=== PATIENT | male | born 1955 | race Hispanic/Latino ===

== ENCOUNTER → 2017-08-21 | Outpatient (CLI) | payer OTHER | END | disposition home or self-care (01) | LOC: RAH 10:59 | PROVIDERS: ATTEND Internal Medicine | DX: K44.9 Diaphragmatic hernia without obstruction or gangrene (principal); I70.0 Atherosclerosis of aorta; M47.895 Other spondylosis, thoracolumbar region | CPT/HCPCS: 71250 ==

== ENCOUNTER → 2018-03-04 | Outpatient (CLI) | payer OTHER | END | disposition home or self-care (01) | LOC: OIH 08:09 | PROVIDERS: ATTEND Internal Medicine | DX: I10 Essential (primary) hypertension (principal); M47.815 Spondylosis without myelopathy or radiculopathy, thoracolumbar region | CPT/HCPCS: 71046 ==

== ENCOUNTER → 2019-03-04 | Outpatient (CLI) | payer OTHER | END | disposition home or self-care (01) | LOC: OIH 09:49 | PROVIDERS: ATTEND Internal Medicine | DX: I70.0 Atherosclerosis of aorta (principal); I10 Essential (primary) hypertension | CPT/HCPCS: 71045 ==

== ENCOUNTER 2022-01-18 14:48 | Emergency (ER) | payer OTHER ==
[~2022-01-18] VITALS: Ht 172.7 cm; Wt 95.3 kg
[2022-01-18 15:13] LABS: APPEARANCE,URINE CLEAR (CLEAR); BILIRUBIN,URINE NEGATIVE (NEGATIVE); COLOR,URINE LIGHT-YELLOW (YELLOW); GLUCOSE, URINE (UA) >=1000 mg/dL (NEGATIVE); KETONES,URINE NEGATIVE (NEGATIVE); LEUKOCYTE ESTERASE ,URINE NEGATIVE Leu/uL (NEGATIVE); NITRATE,URINE NEGATIVE (NEGATIVE); OCCULT BLOOD,URINE MODERATE (NEGATIVE); PROTEIN,URINE NEGATIVE (NEGATIVE); UROBILINOGEN,URINE 0.2 mg/dL (0.2-1.0)
[2022-01-18 15:17] LABS: MUCUS,URINE RARE LPF (None Seen); SQUAMOUS EPITHELIAL CELL,UR RARE /HPF (0-2); WBC,URINE 0-1 /HPF (0-1)
[2022-01-18] MEDS ORDERED: ONDANSETRON 4MG INJ IVP ONE (16:00)
[2022-01-18] MEDS ORDERED: 0.9%NACL 1000ML 1,000 ML IV SCH (16:00)
[2022-01-18] MEDS ORDERED: KETOROLAC 30MG VIAL (30MG/ML) IVP ONE (16:00)
[2022-01-18 16:01] LABS: EOSINOPHILS % (AUTO) 2.1 % (0.0-8.0); HEMATOCRIT 46.4 % (42-54); LYMPHOCYTES % (AUTO) 36.1 % (21.0-51.0); MEAN CORPUSCULAR HEMOGLOBIN 31.2 pg (27.0-33.0); MEAN CORPUSCULAR HGB CONC 34.9 g/dL (32.0-36.0); MEAN CORPUSCULAR VOLUME 89.2 fL (79-99); MONOCYTES % (AUTO) 7.8 % (3.0-13.0); NEUTROPHILS % (AUTO) 52.7 % (40.0-77.0); PLATELET COUNT (AUTO) 184 K/uL (130-400); RED CELL DISTRIBUTION WIDTH 12.3 % (11.0-15.5); WHITE BLOOD COUNT (AUTO) 5.8 K/uL (4.8-10.8)
[2022-01-18 16:20] LABS: CREATININE 0.9 mg/dL (0.5-1.5); POTASSIUM 4.5 mmol/L (3.5-5.1)
[2022-01-18 16:27] VITALS: BP 143/103
[2022-01-18 16:33] LABS: ALBUMIN 4.1 g/dL (3.5-5.0); TOTAL PROTEIN, SERUM 7.5 g/dL (6.0-8.3)
[2022-01-18] MEDS ORDERED: KETO10 PO (17:17)
[2022-01-18] MEDS ORDERED: CEFU500T67 PO (17:17)
[2022-01-18] MEDS ORDERED: MORPHINE 2 MG SYG IVP ONE (17:30)
[2022-01-18] MEDS ORDERED: CEFTRIAXONE 1G VIAL IVP ONE (17:30)
== END 2022-01-18 18:01 | disposition home or self-care (01) ==
LOC: EDH 14:48
DX: N30.91 Cystitis, unspecified with hematuria (principal); K57.30 Diverticulosis of large intestine without perforation or abscess without bleeding; K42.9 Umbilical hernia without obstruction or gangrene; E11.9 Type 2 diabetes mellitus without complications; E78.00 Pure hypercholesterolemia, unspecified; I10 Essential (primary) hypertension; Z90.49 Acquired absence of other specified parts of digestive tract; Z79.899 Other long term (current) drug therapy; Z98.890 Other specified postprocedural states
CPT/HCPCS: 99284; 74176; 96374; 96375; 96361; 84484; 80053; 85025; 81001; 36415; J7030; J0696; J2405; J1885

== ENCOUNTER → 2023-02-03 | Outpatient (CLI) | payer OTHER ==
[~2023-02-03] MED LIST: CEFU500T67 PO; KETO10 PO
== END | disposition home or self-care (01) ==
LOC: OIH 12:09
PROVIDERS: ATTEND Internal Medicine
DX: M54.14 Radiculopathy, thoracic region (principal); R10.13 Epigastric pain; R10.9 Unspecified abdominal pain
CPT/HCPCS: 72070

== ENCOUNTER → 2023-09-30 | Outpatient (CLI) | payer OTHER ==
[~2023-09-30] MED LIST changes: +GADOTERATE MEGLUMINE 10 MMOL/20 ML VIAL IV ONE
== END | disposition home or self-care (01) ==
LOC: RAH 11:18
PROVIDERS: ATTEND Physical Medicine & Rehabilitation
DX: M47.817 Spondylosis without myelopathy or radiculopathy, lumbosacral region (principal); M48.07 Spinal stenosis, lumbosacral region; M51.26 Other intervertebral disc displacement, lumbar region; G45.9 Transient cerebral ischemic attack, unspecified; Z98.890 Other specified postprocedural states
CPT/HCPCS: 70553; 72148; A9575

== ENCOUNTER → 2025-02-02 | Outpatient (CLI) | payer OTHER ==
[~2025-02-02] MED LIST changes: -CEFU500T67 PO; -KETO10 PO
--- NOTE | 2025-02-03 17:20 | HMCIMG ---
NAME OF THE EXAM: MRI LUMBAR SPINE WITH AND WITHOUT CONTRAST CLINICAL INFORMATION: Lumbar radiculopathy. TECHNIQUE: Multiplanar, multisequence MRI of the lumbar spine was performed before and after intravenous contrast administration. For purposes of numbering, the most inferior normal diameter disc space is designated L5S1. Plain radiographs would be required to confirm this numbering prior to any spine intervention. CONTRAST: Intravenous gadolinium-based contrast (Clariscan, 19 mL) administered. COMPARISON: None provided. FINDINGS: ALIGNMENT: Mild straightening of the normal lumbar lordosis. No spondylolisthesis is identified. VERTEBRAL BODIES: Vertebral body heights are preserved without compression deformity. Postoperative changes of L4 and L5 laminectomy are present with associated paraspinal postoperative changes. Bilateral transpedicular screw fixation is present at L4, L5, and S1 with susceptibility artifact from hardware but no definite hardware complication. Multilevel endplate osteophytic spurring is noted. BONE MARROW SIGNAL: No marrow reconversion is seen. No focal marrow-replacing lesion is identified. DISC SPACES: Diffuse disc desiccation is present throughout the lumbar spine with severe loss of disc height at L4L5 and L5S1, compatible with advanced degenerative disc disease at these levels. SPINAL CANAL AND CORD: Conus medullaris terminates at the L1 level with normal signal and morphology. No epidural collection is seen. Central canal caliber is overall preserved at L1L2, with progressive narrowing inferiorly: no canal stenosis at L1L2, severe central canal stenosis at L2L3, [id number]-[id number] canal stenosis at L3L4, no significant canal stenosis at L4L5, and moderate canal stenosis at L5S1. No abnormal intradural or leptomeningeal enhancement is identified following contrast administration. LEVEL BY LEVEL: L1L2: Moderate disc bulge effaces the ventral thecal sac. Facet and ligamentum flavum hypertrophy are present. No central canal stenosis is identified. There is moderate bilateral neural foraminal stenosis. L2L3: Mild diffuse disc bulge effaces the ventral thecal sac with facet and ligamentum flavum hypertrophy. There is severe bilateral neural foraminal stenosis and severe central canal stenosis with impingement of the bilateral exiting nerve roots. L3L4: Diffuse broad-based disc bulge effaces the ventral thecal sac with facet arthropathy and ligamentum flavum hypertrophy. There is severe bilateral neural foraminal stenosis and [id number] central canal stenosis with impingement of the bilateral exiting nerve roots and crowding of the traversing nerve roots. L4L5: Severe reduction in disc height with diffuse chronic disc bulge, postoperative discectomy changes, and a large right paramedian fusion discosteophyte complex effacing the ventral thecal sac. Severe bilateral neural foraminal stenosis is present with impingement of the bilateral exiting nerve roots. No significant central canal stenosis is identified at this level. L5S1: Severe disc height loss with asymmetric chronic spondylosis, postoperative discectomy changes, facet joint arthropathy, and discosteophyte complex resulting in severe bilateral neural foraminal stenosis, more pronounced on the left, with impingement of the bilateral exiting nerve roots. There is moderate central canal stenosis at this level. NEURAL FORAMINA: Multilevel foraminal stenosis as detailed above, ranging from moderate at L1L2 to severe bilaterally at L2L3, L3L4, L4L5, and L5S1, with exiting nerve root impingement most pronounced from L2 through S1. PARASPINAL SOFT TISSUES: Postoperative changes are present in the posterior soft tissues at L4L5. No paraspinal fluid collection or soft tissue edema is identified. SACROILIAC JOINTS: Grade III bilateral sacroiliitis with mild sclerosis and irregularity of the sacroiliac joints. OTHER: A simple cyst in the left kidney measures approximately 21 mm. No additional extraspinal abnormality is identified within the imaged field of view. IMPRESSION: * Postoperative lumbar spine with L4S1 posterior fusion and laminectomy, on a background of advanced multilevel degenerative spondylosis. There is severe bilateral neural foraminal stenosis with exiting nerve root impingement from L2L3 through L5S1, most pronounced at L4L5 and L5S1, concordant with multilevel lumbar radiculopathy; spine surgery or interventional pain management consultation may be considered if symptoms remain refractory to conservative therapy. * Central canal stenosis pattern characterized by severe stenosis at L2L3, [id number]-[id number]-[id number] stenosis at L3L4 with traversing root crowding, and moderate stenosis at L5S1, with relative canal preservation at L1L2 and L4L5; these levels may contribute to neurogenic claudication and should be correlated with distribution of symptoms and physical examination. * Grade III bilateral sacroiliitis, which may represent degenerative sacroiliac joint arthropathy or early inflammatory sacroiliitis; correlate with sacroiliac jointmediated pain, inflammatory back pain features, and rheumatologic markers to determine the need for further targeted evaluation. * Simple 2.1 cm left renal cyst, benign in appearance and without need for specific imaging follow-up in the absence of new clinical concern. * No abnormal spinal cord or leptomeningeal enhancement and no evidence of epidural collection or destructive marrow lesion on this contrast-enhanced lumbar spine MRI. /[place]
== END | disposition home or self-care (01) ==
LOC: RAH 12:53
PROVIDERS: ATTEND Neuromusculoskeletal Medicine & OMM
DX: M47.817 Spondylosis without myelopathy or radiculopathy, lumbosacral region (principal); M54.16 Radiculopathy, lumbar region; M48.061 Spinal stenosis, lumbar region without neurogenic claudication; M48.07 Spinal stenosis, lumbosacral region; M53.3 Sacrococcygeal disorders, not elsewhere classified; N28.1 Cyst of kidney, acquired; M51.379 Other intervertebral disc degeneration, lumbosacral region without mention of lumbar back pain or lower extremity pain; M25.78 Osteophyte, vertebrae; Z98.1 Arthrodesis status
CPT/HCPCS: 72158; A9575